=== PATIENT | female | born 1970 | race Caucasian/White ===

== ENCOUNTER 2018-07-22 14:26 | Emergency (ER) | payer MEDICAID ==
[~2018-07-22] VITALS: Ht 160 cm; Wt 75.3 kg
[2018-07-22 15:11] VITALS: Ht 160 cm; Wt 75.3 kg
[2018-07-22 16:17] VITALS: BP 114/81
== END 2018-07-22 16:17 | disposition home or self-care (01) ==
LOC: ED 14:26
DX: N39.0 Urinary tract infection, site not specified (principal); I10 Essential (primary) hypertension; E11.9 Type 2 diabetes mellitus without complications
CPT/HCPCS: 82962

== ENCOUNTER 2019-11-15 13:18 | Emergency (ER) | payer BC ==
[~2019-11-15] VITALS: Ht 149.9 cm; Wt 73.0 kg
[2019-11-15 13:35] VITALS: Ht 149.9 cm; Wt 73.0 kg
[2019-11-15 14:16] LABS: UA SPECIFIC GRAVITY 1.025 (1.005-1.035); microscopic required? YES; urine erythrocyte 3+ (NEGATIVE)
[2019-11-15 15:00] VITALS: BP 122/67
== END 2019-11-15 15:00 | disposition home or self-care (01) ==
LOC: ED 13:18
PROVIDERS: Emergency Medicine
DX: N39.0 Urinary tract infection, site not specified (principal); R31.9 Hematuria, unspecified; I10 Essential (primary) hypertension; E11.9 Type 2 diabetes mellitus without complications